=== PATIENT | female | born 1970 | race Caucasian/White ===

== ENCOUNTER 2018-08-10 20:39 | Emergency (ER) | payer OTHER ==
[2018-08-10] MEDS ORDERED: ONDANSETRON HCL INJ/PF 4 MG/2 ML SDV IV ONE (21:31)
[2018-08-10] MEDS ORDERED: MORPHINE SULFATE 10 MG/ML INJ IV ONE (21:31)
[2018-08-10] MEDS ORDERED: NORMAL SALINE 1000 ML 1,000 ML IV ONE (21:31)
[2018-08-10] MEDS ORDERED: KETOROLAC TROMETHAMINE INJ/PF 30 MG/1 ML SDV IV ONE (21:31)
--- NOTE | 2018-08-10 21:34 | ER Document Report ---
ED General - General Chief Complaint: Abdominal Pain Stated Complaint: LEFT SIDE PAIN Time Seen by Provider: 08/10/18 21:18 TRAVEL OUTSIDE OF THE [place] IN LAST 30 DAYS: No - HPI Notes: Patient is a 48-year-old female that presents to the emergency department for chief complaint of flank pain. Patient has leukemia and presents for left flank pain. Her pain started 2 days ago. She states it starts in her back and radiates down into her left lower quadrant. She reports some urinary hesitancy and difficulty urinating. She denies any dysuria or frequency. She states she has had kidney stones before and is concerned this may be another one. She reports chills but has not taken her temperature. She states the pain is sharp with no aggravating or relieving factors. Past Medical History: Leukemia Past Surgical History: Cholecystectomy, gastric bypass, partial hysterectomy Social History: Denies drugs alcohol and tobacco Family History: Reviewed and noncontributory for presenting illness Allergies: Reviewed, see documented allergy list. REVIEW OF SYSTEMS: CONSTITUTIONAL : No fever chills No diaphoresis No recent illness EENT: No vision changes No congestion No sore throat CARDIOVASCULAR: No chest pain No palpitations RESPIRATORY: No shortness of breath No cough No difficulty breathing GASTROINTESTINAL: Left flank pain abdominal pain No nausea No vomiting No diarrhea GENITOURINARY: No dysuria No hematuria difficulty urinating MUSCULOSKELETAL: No back pain No leg pain No arm pain SKIN: No rashes No lesions LYMPHATIC: No swollen, enlarged glands. NEUROLOGICAL: No lightheadedness No headache No weakness No paresthesias PSYCHIATRIC: No anxiety No depression PHYSICAL EXAMINATION: Vital signs reviewed, nursing noted reviewed. GENERAL: Well-appearing, well-nourished and in no acute distress. HEAD: Atraumatic, normocephalic. EYES: Eyes appear normal, extraocular movements intact, sclera anicteric, conjunctiva are normal. ENT: nares patent, oropharynx clear without exudates. Moist mucous membranes. NECK: Normal range of motion, supple without lymphadenopathy LUNGS: Breath sounds clear to auscultation bilaterally and equal. No wheezes rales or rhonchi. HEART: Regular rate and rhythm without murmurs ABDOMEN: Soft, LLQ tenderness, left CVA tenderness, normoactive bowel sounds. No rebound, guarding, or rigidity. No masses appreciated. EXTREMITIES: Nontender, good range of motion, no pitting or edema. NEUROLOGICAL: No focal neurological deficits. Moves all extremities spontaneously Motor and sensory grossly intact on exam. PSYCH: Normal mood, normal affect. SKIN: Warm, Dry, normal turgor, no rashes or lesions noted on exposed skin - Related Data Allergies/Adverse Reactions: doxycycline Allergy (Verified 08/10/18 20:41) hydrochlorothiazide [From Diovan HCT] Allergy (Verified 08/10/18 20:41) valsartan [From Diovan HCT] Allergy (Verified 08/10/18 20:41) Past Medical History - Social History Smoking Status: Never Smoker Family History: Reviewed & Not Pertinent Review of Systems - Review of Systems Notes: Dictated Physical Exam - Vital signs Vitals: Temp Pulse Resp BP Pulse Ox 98.4 F 81 16 134/78 H 100 08/10/18 20:48 08/10/18 20:48 08/10/18 20:48 08/10/18 20:48 08/10/18 20:48 - Notes Notes: Dictated Course - Re-evaluation Re-evalutation: 08/10/18 21:34 Vitals reviewed. Nursing notes reviewed. Patient given IV hydration, pain medicine and antiemetics. 08/10/18 22:47 Patient reevaluated and states she is feeling much better. She still has some slight residual pain but states it is manageable. Her nausea is gone. Lab work shows a normal CBC. She has no electrolyte derangements or renal failure. Urinalysis has microscopic hematuria with no infection. CT scan shows no ureterolithiasis or hydronephrosis. The remainder of her workup is unremarkable. Patient will be discharged home in stable condition. She will follow with her primary care provider for reevaluation in a few days. Laboratory 08/10/18 08/10/18 08/10/18 21:17 21:32 21:32 WBC 9.0 RBC 4.83 Hgb 15.0 Hct 43.6 MCV 90 MCH 31.1 MCHC 34.5 RDW 12.6 Plt Count 281 Seg Neutrophils % 51.5 Lymphocytes % 37.6 Monocytes % 7.1 Eosinophils % 3.2 Basophils % 0.6 Absolute Neutrophils 4.6 Absolute Lymphocytes 3.4 Absolute Monocytes 0.6 Absolute Eosinophils 0.3 Absolute Basophils 0.1 Sodium 142.3 Potassium 3.9 Chloride 108 H Carbon Dioxide 25 Anion Gap 9 BUN 13 Creatinine 0.62 Est GFR ( Amer) > 60 Est GFR (Non-Af Amer) > 60 Glucose 54 L Calcium 9.6 Urine Color STRAW Urine Appearance CLEAR Urine pH 6.0 Ur Specific Star 1.003 Urine Protein NEGATIVE Urine Glucose (UA) NEGATIVE Urine Ketones NEGATIVE Urine Blood SMALL H Urine Nitrite NEGATIVE Urine Bilirubin NEGATIVE Urine Urobilinogen NEGATIVE Ur Leukocyte Esterase NEGATIVE Urine WBC (Auto) 1 Urine RBC (Auto) 0 Squamous Epi Cells Auto <1 Urine Mucus (Auto) RARE Urine Ascorbic Acid NEGATIVE Urine HCG, Qual NEGATIVE Abdomen/Pelvis CT 08/10/18 21:31 IMPRESSION: No acute abdominopelvic pathology. Status post cholecystectomy, hysterectomy, and gastric bypass surgery. Patient in agreement with the plan and stable at discharge. - Vital Signs Vital signs: Temp Pulse Resp BP Pulse Ox 98.4 F 81 16 134/78 H 100 08/10/18 20:48 08/10/18 20:48 08/10/18 20:48 08/10/18 20:48 08/10/18 20:48 - Laboratory Result Diagrams: 08/10/18 21:32 08/10/18 21:32 Laboratory results interpreted by me: 08/10/18 08/10/18 21:17 21:32 Chloride 108 H Glucose 54 L Urine Blood SMALL H Discharge - Discharge Clinical Impression: Flank pain, acute Hematuria Qualifiers: Hematuria type: other microscopic Qualified Code(s): R31.29 - Other microscopic hematuria; R31.2 - Other microscopic hematuria Condition: Stable Disposition: HOME, SELF-CARE Instructions: Abdominal Pain ([facility]), Hematuria ([facility]) Additional Instructions: Please return to the emergency department if you have any worsening, or concern of your symptoms. Please return to the emergency department if you develop chest pain, difficulty breathing, severe abdominal pain, or ongoing vomiting. Please follow-up with your primary care physician in 2-3 days and any other recommended physicians. If prescribed, take all medications as directed. If you have any questions or concerns do not hesitate to return the emergency department for evaluation. []
[2018-08-10 21:41] LABS: APPEARANCE,URINE CLEAR; BILIRUBIN,URINE NEGATIVE (NEGATIVE); COLOR,URINE STRAW; GLUCOSE, URINE NEGATIVE (NEGATIVE); KETONES,URINE NEGATIVE (NEGATIVE); LEUKOCYTE ESTERASE,URINE NEGATIVE (NEGATIVE); NITRITE,URINE NEGATIVE (NEGATIVE); PROTEIN,URINE NEGATIVE (NEGATIVE); UROBILINOGEN,URINE NEGATIVE mg/dL (<2.0)
[2018-08-10 21:43] LABS: ABSOLUTE BASOPHILS # (AUTO) 0.1 10^3/uL (0.0-0.2); ABSOLUTE EOSINOPHILS # (AUTO) 0.3 10^3/uL (0.0-0.6); ABSOLUTE LYMPHOCYTES (AUTO) 3.4 10^3/uL (0.5-4.7); ABSOLUTE MONOCYTES (AUTO) 0.6 10^3/uL (0.1-1.4); ABSOLUTE NEUT (AUTO) 4.6 10^3/uL (1.7-8.2); BASOPHILS % (AUTO) 0.6 % (0-2); EOSINOPHILS % (AUTO) 3.2 % (0-6); HEMATOCRIT 43.6 % (36.0-47.0); LYMPHOCYTES % (AUTO) 37.6 % (13-45); MEAN CORPUSCULAR HEMOGLOBIN 31.1 pg (27.0-33.4); MEAN CORPUSCULAR HGB CONC 34.5 g/dL (32.0-36.0); MEAN CORPUSCULAR VOLUME 90 fl (80-97); MONOCYTES % (AUTO) 7.1 % (3-13); PLATELET COUNT 281 10^3/uL (150-450); RED BLOOD COUNT 4.83 10^6/uL (3.72-5.28); RED CELL DISTRIBUTION WIDTH 12.6 % (11.5-14.0); SEGMENTED NEUTROPHILS % (AUTO) 51.5 % (42-78); TOTAL CELLS COUNTED % (AUTO) 100 %
[2018-08-10 21:46] LABS: URINE SPECIFIC GRAVITY 1.003
[2018-08-10 22:07] LABS: ANION GAP 9 (5-19); BLOOD UREA NITROGEN 13 mg/dL (7-20); CALCIUM 9.6 mg/dL (8.4-10.2); CARBON DIOXIDE 25 mmol/L (22-30); CHLORIDE 108 mmol/L (98-107); GLUCOSE 54 mg/dL (75-110); POTASSIUM 3.9 mmol/L (3.6-5.0); SODIUM 142.3 mmol/L (137-145)
--- NOTE | 2018-08-10 22:38 | RADIOLOGY REPORT (SQ) ---
CT ABDOMEN PELVIS WITHOUT IV CONTRAST HISTORY: Left flank pain. COMPARISON: None. TECHNIQUE: CT scan of the abdomen and pelvis. This exam was performed according to our departmental dose-optimization program, which includes automated exposure control, adjustment of the mA and/or kV according to patient size and/or use of iterative reconstruction technique. FINDINGS: Lung bases are clear. No pleural or pericardial effusions. Spleen, pancreas, and adrenal glands are unremarkable. Liver is enlarged measuring 19.7 cm. Cholecystectomy clips are present. Kidneys are unremarkable without hydronephrosis. No urinary tract calculus or obstructive uropathy. Status post hysterectomy. Status post gastric bypass. No bowel obstruction. Appendix is normal. No free air or free fluid. Abdominal aorta is normal caliber. No acute osseous findings. IMPRESSION: No acute abdominopelvic pathology. Status post cholecystectomy, hysterectomy, and gastric bypass surgery.
[2018-08-10 23:14] VITALS: BP 129/63
== END 2018-08-10 23:08 | disposition home or self-care (01) ==
LOC: ER 20:39
DX: R10.9 Unspecified abdominal pain (principal); R31.29 Other microscopic hematuria; R10.814 Left lower quadrant abdominal tenderness; R39.11 Hesitancy of micturition; R68.83 Chills (without fever); Z87.442 Personal history of urinary calculi; Z85.6 Personal history of leukemia; Z90.49 Acquired absence of other specified parts of digestive tract; Z98.84 Bariatric surgery status; Z90.711 Acquired absence of uterus with remaining cervical stump; Z88.1 Allergy status to other antibiotic agents; Z88.8 Allergy status to other drugs, medicaments and biological substances
CPT/HCPCS: 99284; 96361; 96374; 96375; 36415; 85025; 81025; 80048; 81001; 74176; J1885; J2270; J2405; J7030